=== PATIENT | male | born 1940 | race Caucasian/White ===

== ENCOUNTER 2016-08-31 07:25 | Day surgery (SDC) | payer MEDICARE ==
--- NOTE | 2016-08-26 10:15 | PREOP HISTORY & PHYSICAL ---
HISTORY: 75 year old male with visually significant cataracts OU - here for evaluation of declining vision over time. He is "needing significantly more light" in order to read. He is having to remove his glasses much of the time in order to read. He is having to get closer to road signs in order to read them. He is also aware of some "starbursts or haloes" around lights at night which was not apparent 6 month ago. He denies any problems with watching the television. The current glasses are from 2011. PAST OCULAR HISTORY: Visually significant cataracts OD > OS, Asymmetric upper lid dermatochalasis with brow ptosis OD > OS, Posterior vitreous detachment OD, Anisometropic compound myopic astigmatism and presbyopia OCULAR MEDICATIONS: None PAST MEDICAL HISTORY: Amaurosis fugax, left eye (G45.3)01/2015 Ophthalmology examination was negative. CT scan of the brain showing small vessel disease only. Carotid ultrasound showing nonobstructive 1-15% blockage bilaterally. Echocardiogram showing mild diastolic dysfunction. Holter monitor without arrhythmia. Carotid stenosis, asymptomatic, bilateral (I65.23)02/07/2015 In the setting of prior amaurosis fugax which may have been related. Mild (1-15%) stenosis bilaterally by carotid ultrasound. On aspirin. Now on low-dose statin. 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 Diastolic dysfunction, left ventricle (I51.9)01/201515 Grade 1. Hypercholesterolemia (272.0) (E78.00) Hypoxia (799.02) (R09.02) Nocturnal hypoxemia. Daytime oxygenation remains good. Impaired fasting glucose (790.21) (R73.01)2002 DEV (obstructive sleep apnea) (G47.33)10/2010 With nocturnal hypoxemia. Poor tolerance of CPAP. Now, using oxygen at home. Spinal stenosis in cervical region (723.0)06/2010 ALLERGIES: No Known Drug Allergies FAMILY HISTORY: No Significant Family Ocular History Negative Family History Of. SOCIAL HISTORY: Alcohol Use Drinks Socially. 3 per week. Tobacco Use Never smoker. Vehicle Driving Yes. CURRENT MEDICATIONS: Aspirin (325MG Tablet, 1 Oral daily, Taken starting 02/03/2015) Active. Pravastatin Sodium (20MG Tablet, 1 (one) Oral at bedtime, Taken starting 2016) Active. Medications Reconciled PAST SURGICAL HISTORY: Tonsillectomy Age 53 years old. PHYSICAL EXAMINATION: 08/22/2016 4:55 PM Pulse: 60 (Regular) P.OX: 97% (Room air) BP: 149/88 (Sitting, Left Arm, Standard) Chest and Lung Exam Chest and lung exam reveals -Clear and Symmetry throughout. Cardiovascular Auscultation Rhythm - Regular. Heart Sounds - Normal heart sounds. Murmurs & Other Heart Sounds - Auscultation of the heart reveals - No Murmurs. OCULAR EXAMINATION: VISUAL ACUITY: with correction (Glasses) OD 20/50-2 OS 20/25-2 NEAR J2 at 14" WORKING Rx: OD -5.75 + 2.00 x 170 OS -4.50 + 0.75 x 005 ADD + 2.25 (Progressive lens) MANIFEST REFRACTION: OD -6.00 + 1.75 x 175 (20/50-2 BAT 20/60) No improvement in vision OS -4.00 + 0.75 x 015 (20/25-2 BAT 20/40) No improvement in vision ADD + 2.50 (J1 at 14") Slightly better near vision in trial frames than previous Rx CONFRONTATIONAL VISUAL MURILLO: Normal to counting fingers in four quadrants OU PUPILS: Round and equal OU with no afferent pupillary defect seen EXTERNAL: Moderate to severe brow ptosis OD > OS with marked upper lid dermatochalasis OD > OS EXTRA-OCULAR MUSCLES: Versions full OU - orthotropic at both distance and near SLIT LAMP EXAM: LIDS/LASHES: Marked upper lid dermatochalasis OD > OS. Small sebaceous cyst anterior to the left lower lid punctum OS CONJUNCTIVA: Quiet with significant inferior conjunctivochalasis OU CORNEA: Clear with scant tear film OU AC: Deep and quiet OU IRIS: Normal OU PUPILS: Round OU - dilated to about 6-7 mm OU LENS: 2+ nuclear sclerosis with 3+ diffuse vacuolar cortical and early posterior sub-capsular cataract changes in the visual axis OD > OS ANTERIOR VITREOUS: No anterior vitreous cells or pigment seen OU TONOMETRY: TIME: 10:45 AM OD: 12 mm Hg OS: 10 mm Hg DILATING gtt: Phenylephrine 2.5% + Tropicamide 1% FUNDUS: C/D: 0.3 OD, 0.2 OS DISCS: Sharp with clear disc margins OU MACULA: Absent foveal reflex with rare hard drusen OD > OS VESSELS: Normal OU PERIPHERY: Posterior vitreous detachment OU with no retinal breaks seen. 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 Discussed with patient today and I let him know that this could contribute to [id number] vision postoperatively OD. Amaurosis fugax, left eye (G45.3) Impression: No recurrence of symptoms. Working on aggressive risk factor modification. 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 We will reassess the impacts on his activities of daily living after cataract surgery OD. PLAN: Cataract extraction with intra-ocular lens OD, August 31, 2016 Lid soaks and scrubs BID OU (pre-operative blepharitis protocol and antibiotic ointment instructions handout given to patient today). Erythromycin ophthalmic ointment q hs OU as blepharitis prophylaxis (an e-Rx with refills x 1 was sent to [facility] in [place] today). JOSIE
[~2016-08-31 07:25] MED LIST: APRACLONIDINE 0.5% OPHTH 5 ML BTL OP PRN; BUPIVACAINE HCL/PF 0.75% 10 ML VIAL OP PRN; CIPROFLOXACIN 0.3% OPHTH 50 DROP/5 ML BTL OP SCH; CYCLOPENTOLATE HCL 1% OPHTH 2 ML BTL OP SCH; FLURBIPROFEN 0.03% OPHTH 2.5 ML BTL OP SCH; PHENYLEPHRINE 2.5% OPHTH 10 DROP/2 ML BTL OP SCH
[2016-08-31] MEDS ORDERED: CYCLOPENTOLATE HCL 1% OPHTH 2 ML BTL ONE (07:50)
[2016-08-31] MEDS ORDERED: APRACLONIDINE 0.5% OPHTH 5 ML BTL ONE (07:50)
[2016-08-31] MEDS ORDERED: NORFLURANE/HFC 245FA 1 APPLIC CAN TOPICAL ONE (07:50)
[2016-08-31] MEDS ORDERED: FLURBIPROFEN 0.03% OPHTH 2.5 ML BTL ONE (07:50)
[2016-08-31] MEDS ORDERED: CIPROFLOXACIN 0.3% OPHTH 50 DROP/5 ML BTL ONE (07:50)
[2016-08-31] MEDS ORDERED: BUPIVACAINE HCL/PF 0.75% 10 ML VIAL ONE (07:50)
[2016-08-31] MEDS ORDERED: PHENYLEPHRINE 2.5% OPHTH 10 DROP/2 ML BTL ONE (07:50)
[2016-08-31 08:00] VITALS: TEMP 96.8; O2SAT 91
[2016-08-31] MEDS ORDERED: KETOROLAC 0.45% OPHTH 1 DROP/EACH DROPERETTE ONE (08:46)
[2016-08-31] MEDS ORDERED: CHONDROITIN/HYALURONIDATE OPHT 0.5 ML KIT ONE (08:46)
[2016-08-31] MEDS ORDERED: BACITRACIN OPHTH OINTMENT 3.5 GM TUBE ONE (08:46)
[2016-08-31] MEDS ORDERED: LIDOCAINE HCL/PF 1% 30 ML VIAL ONE (08:46)
[2016-08-31 09:36] VITALS: BP 130/67; PULSE 64; RESP 12
--- NOTE | 2016-08-31 15:34 | OPERATIVE REPORT ---
DATE OF SURGERY: SURGEON: Lino Saldana MD ANESTHESIA: Topical with monitored anesthesia care. PREOPERATIVE DIAGNOSIS: Cataract, right eye. POSTOPERATIVE DIAGNOSIS: Cataract, right eye. OPERATION PERFORMED: Cataract extraction by phacoemulsification with posterior chamber intraocular lens, right eye. COMPLICATIONS: None. PROCEDURE: The patient was brought to the operating room where he was placed in the supine position. After the instillation of additional tetracaine drops in the right eye, the eye was prepped and draped in the usual sterile ophthalmic manner. A lid speculum was placed in the right eye, after which an inferior paracentesis was fashioned with 1-mm steel keratome, and 0.2 mL of 1% nonpreserved lidocaine was injected intracamerally followed by Viscoat. A temporal clear corneal incision of 3-mm width was fashioned with a steel keratome. A continuous curvilinear capsulorrhexis was fashioned with a bent- needle cystitome and Utrata forceps under Viscoat. Hydrodissection was carried out with balanced salt solution on an intraocular cannula. The nucleus was noted to rotate freely. Phacoemulsification proceeded in a two-handed fashion utilizing typical phacoemulsification times and hua, as the nucleus was noted to be 2+ dense. Residual cortical material was then removed with the automated irrigation-aspiration handpiece. The anterior chamber and capsular bag were then reinflated with Provisc, after which an AcrySof model SA60AT foldable acrylic intraocular lens of 14.5 diopters power was placed into the capsular bag. The haptics were rotated with a Y hook and the intraocular lens was noted to center well. Residual viscoelastic was then removed with the automated irrigation-aspiration handpiece , after which the wound edges were hydrated with balanced salt solution. The intraocular pressure at the conclusion of the procedure was physiologic, and there was no evidence of wound leakage upon testing with a Weck Marly sponge. Acular drops and bacitracin ointment were placed in the right eye, and the patient was brought to the recovery area, having tolerated the procedure well. He was given full postoperative instructions. JOSIE
== END 2016-08-31 09:45 | disposition home or self-care (01) ==
LOC: SDS 07:25
PROVIDERS: ATTEND Ophthalmology
DX: H25.011 Cortical age-related cataract, right eye (principal); H35.371 Puckering of macula, right eye; G45.3 Amaurosis fugax; H02.833 Dermatochalasis of right eye, unspecified eyelid; I51.9 Heart disease, unspecified; E78.00 Pure hypercholesterolemia, unspecified; R09.02 Hypoxemia; G47.33 Obstructive sleep apnea (adult) (pediatric); I65.23 Occlusion and stenosis of bilateral carotid arteries; Z79.899 Other long term (current) drug therapy
CPT/HCPCS: J0171; V2632